=== PATIENT | female | born 1945 | race Caucasian/White ===

== ENCOUNTER 2016-10-07 14:29 | Emergency (ER) | payer MEDICARE ==
[2016-10-07 14:52] VITALS: BP 114/63
--- NOTE | 2016-10-07 16:47 | UC ---
Hand/Wrist HPI - HPI Summary HPI Summary: 71 female presents today with complaints of thinking she has glass in her right middle finger that has been ongoing for 2 months. Patient states she was gardening, picked up a flower pot and had small pieces of glasses cut her finger ~2months ago, she states it was bleeding and she removed some of the glass herself at that time. Patient states since this episode her finger however has still been painful when using it and on palpation of the finger pad area. She believes it is because there is still a small piece of glass inside. Also admits to some swelling and redness of the area (right middle finger pad). Patient denies any other complaints or injuries. Denies fever/chills and loss of ROM. Does have history of warts. - History Of Current Complaint Chief Complaint: Noah Stated Complaint: GLASS IN FINGER Time Seen by Provider: 10/07/16 16:31 Hx Obtained From: Patient Mechanism Of Injury: cut finger on glass 2 months ago Onset/Duration: Sudden Onset, Lasting Weeks - 2 months Severity Initially: Mild Severity Currently: Mild Pain Intensity: 3 Pain Scale Used: 0-10 Numeric Character Of Pain: Sharp - on palpation or pressure Aggravating Factor(s): Other - pressure/palpation Alleviating: Nothing Associated Signs And Symptoms: Positive: Swelling, Redness Related History: Dominant Hand Right - Allergies/Home Medications Allergies/Adverse Reactions: Allergies Allergy/AdvReac Type Severity Reaction Status Date / Time topical spray Allergy Hives Uncoded 10/07/16 14:52 PMH/Surg Hx/FS Hx/Imm Hx - Additional Past Medical History Additional PMH: Denies diabetes, htn and asthma. has history of arthritis - Surgical History Surgical History: Yes Surgery Procedure, Year, and Place: [facility] - Family History Known Family History: Positive: None - Social History Alcohol Use: None Substance Use Type: None Smoking Status (MU): Never Smoked Tobacco - Immunization History Most Recent Influenza Vaccination: 2013 Most Recent Tetanus Shot: Unknown Most Recent Pneumonia Vaccination: 3 years ago Review of Systems Constitutional: Negative Skin: Other - redness, swelling, pain Respiratory: Negative Cardiovascular: Negative Motor: Negative Neurovascular: Negative Musculoskeletal: Negative Neurological: Negative All Other Systems Reviewed And Are Negative: Yes Physical Exam Triage Information Reviewed: Yes Appearance: Well-Appearing, No Pain Distress, Well-Nourished Vital Signs: Initial Vital Signs Temp 98.3 F 10/07/16 14:50 Pulse 79 10/07/16 14:50 Resp 16 10/07/16 14:50 BP 114/63 10/07/16 14:50 Pulse Ox 97 10/07/16 14:50 Vital Signs Reviewed: Yes Eye Exam: Normal Eyes: Positive: Conjunctiva Clear ENT: Positive: Hearing grossly normal Neck exam: Normal Respiratory: Positive: Chest non-tender, Lungs clear, Normal breath sounds, No respiratory distress, No accessory muscle use Cardiovascular: Positive: RRR, No Murmur, Pulses Normal - 2+ radial b/l, Brisk Capillary Refill - <2 sec Musculoskeletal: Positive: Strength Intact, ROM Intact, Edema @ - mild edema of right tip of middle finger Neurological Exam: Normal Neurological: Positive: Alert, Muscle Tone Normal Psychological: Positive: Age Appropriate Behavior Skin: Positive: Other - edema and mild erythema of right middle finger pad/tip of anterior finger, possible FB however can not visualize any foreign body, palpation causes pain. small firm area in center of finger pad, with white center/wart like. no discharge does not appear to be infected at this time. Procedures - Procedure Summary Procedure Summary: see Dr Cast procedure note as she removed foreign body without complication. tolerated procedure well. minimal to no bleeding, bandaid applied. Diagnostics - Radiology right middle finger Xray Interpretation: Positive (See Comments) - 3 mm length radiopaque foreign body visualized within the superficial soft tissues at the palmar aspect of the tip of the finger at the level of the tuft of the distal phalanx. The foreign body is located radial relative to midline. Surrounding soft tissue swelling. Negative for fracture or malalignment. 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 Radiology Interpretation Completed By: Radiologist Hand/Wrist Course/Dx - Course Course Of Treatment: x-ray obtained and showed radiolucent foreign body. was removed by Dr Segun rodriguezout complication, tolerated procedure well. banaid applied with triple antibiotic ointment. tetanus updated. Warm soaks, keep clean and dry and watch for signs of infection. Apply triple antibiotic. Aware of worsening signs and symptoms to watch out for. Follow up PCP. - Differential Dx/Diagnosis Differential Diagnosis/HQI/PQRI: Cellulitis, Foreign Body, Infection, Other - wart Provider Diagnoses: right middle finger pain, redness, possible FB versus wart - Physician Notifications Discussed Patient Care With: Dr Cast Discharge - Discharge Plan Condition: Stable Disposition: HOME Patient Education Materials: Soft Tissue Foreign Body (ED) Referrals: Melvin Rhoades MD [Primary Care Provider] - Leidy Karimi MD [Medical Doctor] - Additional Instructions: Continue warm soaks. Keep clean and dry. If you develop worsening signs and symptoms such as infection, increased pain, numbness, fever/chills please seek medical attention promptly. Advil for pain. Ice to help with swelling and soothe pain. Follow up with PCP. Ortho if complications arise.
--- NOTE | 2016-10-07 17:09 | RAD ---
Indication: Sliver of glass at the palmar aspect of RIGHT finger at level of the middle phalanx for 2 months. Swelling and redness. Pain with pressure. Assess for foreign body. Comparison: No relevant prior exams available on the [facility] for comparison. Technique: AP, lateral, and oblique views RIGHT third finger Report: 3 mm length radiopaque foreign body visualized within the superficial soft tissues at the palmar aspect of the tip of the finger at the level of the tuft of the distal phalanx. The foreign body is located radial relative to midline. Surrounding soft tissue swelling. Negative for fracture or malalignment. 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 Valerio images saved on the [facility]. IMPRESSION: Retained foreign body within the soft tissues of the tuft of the RIGHT middle finger as described.
[2016-10-07] MEDS ORDERED: Lidocaine 1%* 5 ML VIAL INJ ONE (17:33)
[2016-10-07] MEDS ORDERED: Lidocaine 1% MPF* 2 ML VIAL ONE (17:37)
[2016-10-07] MEDS ORDERED: Tetan/Diph/Pertus SYR(Tdap)* 0.5 ML SYR(BOOSTRIX) use SYR IM ONE (17:59)
--- NOTE | 2016-10-07 18:01 | ED ---
Course/Dx - Course Course Of Treatment: x-ray obtained and negative for FB. US not available. told to follow up with PCP and to have US for further evaluation and rule out FB. Warm soaks, watc hfor signs of infection. Apply triple antibiotic. Once you rule out FB may be a wart. Discussed alternatives. Aware of worsening signs and symptoms to watch out for. - Diagnoses Provider Diagnoses: Foreign body in soft tissue Procedure - Procedure and Findings -: Pt with palpable fb in pad or right middle finger Visible on imaging d/w pt treatment options including foreign body removal in UC, ortho hand f/u, warm soaks and possible natural expulsion. Pt requested procedure at Time out taken with 2 RN present area prepped in sterile condition with betadine wipe x 3 and allowed to dry Under sterile condition, area of fb anesthesized with 1cc 1% lidocaine without epinephrine Using 11 blade [id number] "T" shaped incision made over site of fb Using tweezers v shape glass identified and pulled straight from wound Pt tolerated well covered wound with abx ointment and bandage encouraged warm soaks with epsom salts motrin/apap prn covered with abx ointment bandage reviewed with pt s/s infection Pt comfortable and in agreement with plan CSM intact post procedure
== END 2016-10-07 18:16 | disposition home or self-care (01) ==
LOC: UCEAST 14:29
DX: M79.644 Pain in right finger(s) (principal); L98.9 Disorder of the skin and subcutaneous tissue, unspecified
CPT/HCPCS: 73140; 90471; 90715; 99211; G0463

== ENCOUNTER 2017-02-09 08:39 | Day surgery (SDC) | payer MEDICARE ==
[2017-02-09] MEDS ORDERED: Lidocaine 1% MPF wEPI 200,000* 30 ML SDV ONE (09:58)
[2017-02-09] MEDS ORDERED: Sodium Bicarbonate 8.4% SYR* 10 ML SYRINGE ONE (09:58)
[2017-02-09] MEDS ORDERED: Bupivacaine 0.25% SDV* 30 ML ONE ×2 (10:04→11:54)
[2017-02-09 12:06] VITALS: BP 146/71
--- NOTE | 2017-02-10 07:03 | OP ---
DATE OF OPERATION: 02/09/17 - [facility] DATE OF : 49 SURGEON: Ever Earl MD CONTROL CABINET ASSEMBLER: AMADO Saldivar ANESTHESIOLOGIST: None. ANESTHESIA: Local only with 1% lidocaine with epinephrine and bicarbonate for the ring finger and 0.25% Marcaine for the index finger. PRE-OP DIAGNOSES: 1. Right ring trigger finger. 2. Right index finger, large mucous cyst with quite large dorsal osteophytes. POST-OP DIAGNOSES: 1. Right ring trigger finger. 2. Right index finger, large mucous cyst with quite large dorsal osteophytes. OPERATIVE PROCEDURE: 1. Right ring trigger finger A1 enrique release. 2. Right index finger mucous cyst excision with dorsal osteophyte excision. INDICATIONS: Darleen has a couple of issues. We talked about her treatment options and risks and benefits, she wanted to proceed with surgery. ESTIMATED BLOOD LOSS: 5 mL. COMPLICATIONS: None. FINDINGS: After releasing the right hand trigger finger, had her flex and extend the finger multiple times. She had no more triggering in the ring finger but she was having a little bit of catching in the small finger. I had asked her if she wanted to proceed with a trigger finger release for the small finger. She told me she wanted to hold off at the current time. DESCRIPTION OF PROCEDURE: Darleen was seen in the preoperative holding area. The correct side, site and the procedure were identified. I then anesthetized the right ring finger A1 enrique area with 1% lidocaine with epinephrine and bicarbonate and I performed a digital block for the right index finger with 0.25 % plain Marcaine. We then came back to the operating room, the arm was prepped and draped in the usual fashion. A time-out was performed. I began by making a 1 cm longitudinal incision of the right ring finger A1 enrique. Full-thickness flaps were raised off the tendon sheath. Digital nerves were protected with Ragnell retractors. I used the 15 blade to open up the A1 enrique longitudinally just on the radial aspect of midline. The release was completed proximally and distally with the tenotomy scissors. I then went ahead and irrigated out the wound. I had her flex and extend the fingers multiple times. There was no more triggering in the ring finger, but she was getting some catching and triggering in the small finger. I showed her this and I asked her if she wants me to proceed with the release. She told me she wanted to hold off. Everything was looking good with regards to the right ring finger. So, we irrigated out the wound. Skin was closed with 3-0 Monocryl suture. I then exsanguinated the right index finger with a Samm drain and left this on proximally as a tourniquet throughout the case. I went ahead and made an A- shaped incision over the dorsum of the index finger DIP joint. Full thickness flaps were raised off the terminal extensor tendon. I began ulnarly and developed an interval between the terminal extensor tendon and the ulnar collateral ligament. There was a very large loose mobile osteophyte there. This was excised with the [place] blade and rongeur. The entirety of that interval was excised. I then came to the radial side and again developed the interval between the radial collateral ligament and the terminal extensor tendon. Again, some very large osteophytes were excised. The redundant capsular and cystic material was excised. The tendon was mobilized off the dorsum of the middle phalanx. Some osteophytes there were excised with the rongeur. There were some large osteophytes remaining where the terminal extensor tendon attached to the distal phalanx. I excised as much of them as possible, but then I showed her that any additional excision of those osteophytes would result in detachment of the terminal extensor tendon and a mallet finger, told her we got to leave those alone and so we did. Once I had excised as much of the osteophytes as possible and got everything nicely cleaned up, I went ahead and irrigated out the wound. The skin there was closed with 4-0 nylon suture. I did infiltrate the trigger finger release area with some 0.25% plain Marcaine. The wounds were dressed with Xeroform, 4x4s, 1 inch cling and Coban. Tourniquet had been released after the index finger and it pinked up immediately. She was then taken to recovery room in stable condition. [id number]/[facility] #: [id number] ANGÉLICA
== END 2017-02-09 12:26 | disposition home or self-care (01) ==
LOC: OR 08:39
PROVIDERS: ATTEND Orthopaedic Surgery Hand Surgery
DX: M65.341 Trigger finger, right ring finger (principal); M25.741 Osteophyte, right hand; M25.841 Other specified joint disorders, right hand; M19.041 Primary osteoarthritis, right hand; Z88.2 Allergy status to sulfonamides; Z88.8 Allergy status to other drugs, medicaments and biological substances
CPT/HCPCS: 88304; J2001

== ENCOUNTER 2017-02-09 19:50 | Emergency (ER) | payer MEDICARE ==
[2017-02-09 19:57] VITALS: BP 157/76
--- NOTE | 2017-02-09 22:04 | ED ---
Jayden Crook Gabriel, scribed for Jason Arthur on 02/09/17 at 2042 . Complex/Multi-Sys Presentation - HPI Summary HPI Summary: This patient is a 71 year old F presenting to [facility] with a chief complaint of right handed numbness s/p surgery. Pt states she had trigger finger surgery today and says her fingers are cold and numb fingers, but she can move them. - History Of Current Complaint Chief Complaint: EDExtremityUpper Time Seen by Provider: 02/09/17 20:26 Hx Obtained From: Patient Onset/Duration: Still Present Timing: Constant Severity Currently: Moderate Severity Initially: Mild - Allergies/Home Medications Allergies/Adverse Reactions: Allergies Allergy/AdvReac Type Severity Reaction Status Date / Time Latex Allergy Blisters Verified 02/09/17 09:21 Sulfa Antibiotics Allergy Unknown Verified 02/09/17 09:22 Reaction Details topical spray Allergy Hives Uncoded 02/09/17 09:04 PMH/Surg Hx/FS Hx/Imm Hx Previously Healthy: No Endocrine/Hematology History: Denies: Hx Diabetes Cardiovascular History: Denies: Hx Congestive Heart Failure, Hx Hypertension Respiratory History: Denies: Hx Chronic Obstructive Pulmonary Disease (COPD) History: Denies: Hx Renal Disease Musculoskeletal History: Reports: Hx Arthritis Denies: Hx Osteoporosis Sensory History: Reports: Hx Contacts or Glasses, Hx Hearing Aid Opthamlomology History: Reports: Hx Contacts or Glasses Neurological History: Reports: Hx Migraine Psychiatric History: Reports: Hx Anxiety - Surgical History Surgery Procedure, Year, and Place: [facility] Infectious Disease History: No Infectious Disease History: Denies: Traveled Outside the [place] in Last 30 Days - Family History Known Family History: Negative: Cardiac Disease, Diabetes - Social History Alcohol Use: Rare Substance Use Type: Reports: None Hx Tobacco Use: No Smoking Status (MU): Never Smoked Tobacco Have You Smoked in the Last Year: No Review of Systems Negative: Fever Positive: Other - fingers in right hand are cold Positive: Numbness - in fingers of right hand All Other Systems Reviewed And Are Negative: Yes Physical Exam - Summary Physical Exam Summary: Appearance: Well appearing, no pain distress Skin: warm, dry, reflects adequate perfusion Head/face: normal Eyes: EOMI, CRISTINA ENT: normal Neck: supple, non-tender Respiratory: CTA, breath sounds present Cardiovascular: RRR, pulses symmetrical Abdomen: non-tender, soft Bowel: present Musculoskeletal: strength/ROM intact, Dressing over right index finger, palm, and dorsal aspect of right hand. Her capillary refill is normal and there appears to be no neural vacular deficits. Neuro: normal, sensory motor intact, A&Ox3 Triage Information Reviewed: Yes Vital Signs On Initial Exam: Initial Vitals Temp Pulse Resp BP Pulse Ox 99.7 F 74 15 157/76 100 02/09/17 19:53 02/09/17 19:53 02/09/17 19:53 02/09/17 19:53 02/09/17 19:53 Vital Signs Reviewed: Yes Diagnostics - Vital Signs Vital Signs Temp Pulse Resp BP Pulse Ox 02/09/17 19:53 99.7 F 74 15 157/76 100 - Laboratory Lab Statement: Any lab studies that have been ordered have been reviewed, and results considered in the medical decision making process. Complex Multi-Symp Course/Dx Assessment/Plan: This patient is a 71 year old F presenting to [facility] with a chief complaint of right handed numbness s/p surgery. Pt states she had trigger finger surgery today and says her fingers are cold and numb fingers, but she can move them. Patient fingers are warm and good capillary refill , no nv deficit of the fingers and hand. to follow up with ortho am. - Diagnoses Differential Diagnoses/HQI/PQRI: Other - hx trigger finger surgery/post op complication Provider Diagnoses: Post surgical complication, Hx of hand surgery Discharge - Discharge Plan Condition: Stable Disposition: HOME Referrals: Melvin Rhoades MD [Primary Care Provider] - 3 Days Additional Instructions: RETURN TO THE EMERGENCY DEPARTMENT FOR CHANGING OR WORSENING SYMPTOMS The documentation as recorded by the Jayden orozco Gabriel accurately reflects the service I personally performed and the decisions made by , Jason Arthur.
== END 2017-02-09 20:59 | disposition home or self-care (01) ==
LOC: ED 19:50
DX: T81.89XA Other complications of procedures, not elsewhere classified, initial encounter (principal); Y83.8 Other surgical procedures as the cause of abnormal reaction of the patient, or of later complication, without mention of misadventure at the time of the procedure; Y92.9 Unspecified place or not applicable; R20.0 Anesthesia of skin; F41.9 Anxiety disorder, unspecified; Z88.2 Allergy status to sulfonamides
CPT/HCPCS: 99281

== ENCOUNTER 2018-12-31 09:59 | Inpatient (IN) | payer MEDICARE ==
--- OUTSIDE RECORDS SUMMARY | 2018-12-31 10:17 | XMS REPORT | Continuity of Care Document ---
:1945 External Reference #:[id number] Author Name Yuki Camarena MD (transmitted by agent of provider Shannon Davies) Address [address], [place] [address] Care Team Providers Name Role Phone Melvin Rhoades MD - Family Medicine Care Team Information Automation Tester Eddie Branham MD - Admissions Assistant Care Team Information Automation Tester Problems Active Problems Provider Date Chest pain Redd Doll M.D. Onset: 09/13/2013 Dyspnea Redd Doll M.D. 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 Onset: 02/08/2014 Systemic sclerosis Bhavin Harvey M.D. Onset: 02/08/2014 Myalgia & Myositis Unspecified Bhavin Harvey M.D. Onset: 02/08/2014 Immunologic Carlos Luke M.D. 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 Social History Type Date Description Comments Sex Unknown ETOH Use Denies alcohol use Tobacco Use Start: Unknown Patient has never smoked Recreational Drug Use Denies Drug Use Smoking Status Reviewed: 11/30/18 Patient has never smoked Exercise Type/Frequency Does not exercise Allergies, Adverse Reactions, Alerts Active Allergies Reaction Severity Comments Date Benzoin Resin per PCP office 07/201612/16/2016 Latex skin blistering 12/16/2016 Sulfa per PCP 07/201612/16/2016 Medications Active Medications SIG Qnty Indications Ordering Provider Date Multivitamin Adult 1 by mouth every Unknown Tablets day Alprazolam Unknown 0.25mg Tablets Medications Administered in Office Medication SIG Qnty Indications Ordering Provider Date Celestone 3 mg and 3mg Ever Earl MD 12/09/2016 Injection Celestone 3 mg and 3mg Heather Gill, 12/02/2010 Injection M.D. Celestone 3 mg and 3mg Heather Gill, 11/20/2009 Injection M.DJocelyne Immunizations Description No Information Available Vital Signs Date Vital Result Comment 11/30/2018 10:20am Heart Rate 76 /min Respiratory Rate 16 /min Body Temperature 98.4 F 08/03/2018 10:31am Heart Rate 72 /min BP Systolic 130 mmHg BP Diastolic 72 mmHg Respiratory Rate 16 /min Body Temperature 98.9 F Results Description No Information Available Procedures Date Code Description Status 08/03/2018 11136 Anoscopy Completed 06/30/2018 56427 Hemorrhoidectomy, Internal, By Rubber Band Ligation(S) Completed 06/02/2018 35552008 Colonoscopy Completed Medical Devices Description No Information Available Encounters Type Date Location Provider Dx Diagnosis Office Visit 06/30/2018 Surgical Adan Amado, [id number] Second degree 9:[facility] hemorrhoids Assessments Date Code Description Provider 08/03/2018 K64.1 Second degree hemorrhoids Adan Amado M.D. 07/06/2018 K64.1 Second degree hemorrhoids Adan Amado M.D. 06/30/2018 K64.1 Second degree hemorrhoids Adan Amado M.D. Plan of Treatment No Information Available Functional Status Description No Information Available Mental Status Description No Information Available Referrals Description No Information Available
--- NOTE | 2018-12-31 10:40 | ED ---
Abdominal Pain/Female - HPI Summary HPI Summary: This patient is a 73 year old female presenting to [facility] with a chief complaint of lower abdominal pain 4 days ago. She states the pain radiates to her lower back. She states she was very dizzy in the shower this morning. She states she briefly experienced chills while she was on the phone this morning. She also reports headache, constipation, and nausea. She rates her pain 7/10 in severity. She states she may have a prolapsed rectum and she is currently experiencing rectal pain when she is sitting down. Pt denies any fever, erythema of eyes, sore throat, CP, SOB, cough, vomiting, dysuria, hematuria, myalgia, edema, or rash. - History of Current Complaint Chief Complaint: EDAbdPain Stated Complaint: ABD PAIN/FLANK PAIN AND DIZZINESS PER PT Hx Obtained From: Patient Onset/Duration: Lasting Hours Severity Initially: Moderate Severity Currently: Moderate Pain Intensity: 7 Pain Scale Used: 0-10 Numeric Location: Discrete At: RLQ, Discrete At: LLQ Radiates: Yes Radiates to: Back Allergies/Adverse Reactions: Allergies Allergy/AdvReac Type Severity Reaction Status Date / Time latex Allergy Blisters Verified 12/31/18 14:50 Sulfa (Sulfonamide Allergy Unknown Verified 12/31/18 14:50 Antibiotics) Reaction Details topical spray Allergy Hives Uncoded 02/09/17 09:04 Home Medications: Home Medications ALPRAZolam TAB* [Xanax TAB*] 0.25 mg PO BEDTIME PRN 12/31/18 [History Confirmed 12/31/18] Glucosam/Chondr/Collagn/Hyalur [Glucosamine & Chondroitin Cap] 1 cap PO DAILY [History Confirmed 12/31/18] Multivitamins/Minerals TAB* [Theragran/minerals TAB*] 1 tab PO DAILY 12/31/18 [ History Confirmed 12/31/18] PMH/Surg Hx/FS Hx/Imm Hx Endocrine/Hematology History: Denies: Hx Diabetes Cardiovascular History: Denies: Hx Congestive Heart Failure, Hx Hypertension Respiratory History: Denies: Hx Chronic Obstructive Pulmonary Disease (COPD) History: Denies: Hx Renal Disease Musculoskeletal History: Reports: Hx Arthritis Denies: Hx Osteoporosis Sensory History: Reports: Hx Contacts or Glasses, Hx Hearing Aid Opthamlomology History: Reports: Hx Contacts or Glasses Neurological History: Reports: Hx Migraine Psychiatric History: Reports: Hx Anxiety - Cancer History Hx Chemotherapy: No Hx Radiation Therapy: No - Surgical History Surgery Procedure, Year, and Place: [facility] Infectious Disease History: Yes Infectious Disease History: Denies: Traveled Outside the [place] in Last 30 Days - Family History Known Family History: Negative: Cardiac Disease, Diabetes - Social History Alcohol Use: Rare Substance Use Type: Reports: None Hx Tobacco Use: No Smoking Status (MU): Never Smoked Tobacco Have You Smoked in the Last Year: No Review of Systems Negative: Fever, Chills Negative: Erythema Negative: Sore Throat Negative: Chest Pain Negative: Shortness Of Breath, Cough Positive: Abdominal Pain, Nausea, Other - Rectal pain, constipation. Negative: Vomiting Negative: dysuria, hematuria Negative: Myalgia, Edema Negative: Bruising Neurological: Other - Dizziness Positive: Headache All Other Systems Reviewed And Are Negative: No Physical Exam - Summary Physical Exam Summary: Constitutional: Well-developed, Well-nourished, Alert. (-) Distressed Skin: Warm, Dry HENT: Normocephalic; Atraumatic Eyes: Conjunctiva normal Neck: Musculoskeletal ROM normal neck. (-) JVD, (-) Stridor, (-) Tracheal deviation Cardio: Rhythm regular, rate normal, Heart sounds normal; Intact distal pulses; The pedal pulses are 2+ and symmetric. Radial pulses are 2+ and symmetric. (-) Murmur Pulmonary/Chest wall: Effort normal. (-) Respiratory distress, (-) Wheezes, (-) Rales Abd: Soft, mild bilateral lower abdominal tenderness, suprapubic tendernss, (-) Distension, (-) Guarding, (-) Rebound Musculoskeletal: (-) Edema. Bilateral CVA tenderness. Lymph: (-) Cervical adenopathy Neuro: Alert, Oriented x3 Psych: Mood and affect Normal Rectal: Compliance Aide Shwetha present. No perirectal abscess. No hemorrhoids or prolapse. Triage Information Reviewed: Yes Vital Signs On Initial Exam: Initial Vitals Temp Pulse Resp BP Pulse Ox 99.3 F 96 16 117/76 0 12/31/18 10:02 12/31/18 10:02 12/31/18 10:02 12/31/18 10:02 12/31/18 10:02 Vital Signs Reviewed: Yes Procedures - Sedation Patient Received Moderate/Deep Sedation with Procedure: No Diagnostics - Vital Signs Vital Signs Temp Pulse Resp BP Pulse Ox 12/31/18 10:02 99.3 F 96 16 117/76 0 - Laboratory Result Diagrams: 01/02/19 05:42 01/02/19 05:42 Lab Statement: Any lab studies that have been ordered have been reviewed, and results considered in the medical decision making process. - CT Abd/Pel CT Interpretation Completed By: Radiologist Summary of CT Findings: In the sigmoid colon just proximal to the rectum there is wall thickening and narrowing of the lumen likely representing diverticulitis although other etiologies are not excluded. There is fecal stasis proximal to this narrowing. No evidence of peridiverticular abscess is noted. Pericolonic infiltration of fat is noted. ED Provider has reviewed this report. Re-Evaluation - Re-Evaluation First Eval Re-Evaluation Time: 13:40 Comment: Patient is comfortable. Informed of results and plan of care. Abdominal Pain Fem Course/Dx - Course Course Of Treatment: This patient is a 73 year old female presenting to [facility] with a chief complaint of lower abdominal pain radiating to her back. CT Abd/ Pel revealed In the sigmoid colon just proximal to the rectum there is wall thickening and narrowing of the lumen likely representing diverticulitis although other etiologies are not excluded. There is fecal stasis proximal to this narrowing. No evidence of peridiverticular abscess is noted. Pericolonic infiltration of fat is noted. Labs revealed WBC 15.8, Absolute Neuts 13.4, Absolute Monos 1.2, and CRP 106.999. Dr. Botello, Hospitalist, accepted the patient for admission to the hospital. A plan for admission was discussed with the patient and she was agreeable with this plan. - Diagnoses Provider Diagnoses: Diverticulitis Discharge ED - Sign-Out/Discharge Documenting (check all that apply): Patient Departure - Admission - Discharge Plan Condition: Stable Disposition: ADMITTED TO [facility] - Billing Disposition and Condition Condition: STABLE Disposition: Admitted to [facility] - Attestation Statements Document Initiated by Scribe: Yes Documenting Scribe: Ever Jacobson Provider For Whom Scribe is Documenting (Include Credential): Colby Marvin MD Scribe Attestation: Ever Crook, scribed for Colby Marvin MD on 01/03/19 at 0802. Scribe Documentation Reviewed: Yes Provider Attestation: The documentation as recorded by the scribe, Ever Jacobson accurately reflects the service I personally performed and the decisions made by me, Colby Marvin MD Status of Scribe Document: Viewed
[2018-12-31] MEDS ORDERED: Morphine 4 MG/ML VIAL (1 ml) 4 MG/ML VIAL IV ONE (11:09)
[2018-12-31] MEDS ORDERED: Ondansetron INJ* 2 MG/ML VIAL IV ONE (11:09)
[2018-12-31 11:26] LABS: ABS Eosinophils 0.1 10^3/ul (0-0.6); ABS Monocytes 1.2 10^3/ul (0-0.8); ABS Neutrophils 13.4 10^3/ul (1.5-7.7); Eosinophil % 0.8 %; Hematocrit 40 % (35-47); Hemoglobin 13.3 g/dL (12.0-16.0); Lymphocyte % 6.6 %; Mean Corpuscular HGB Conc 33 g/dL (31-36); Mean Corpuscular Hemoglobin 30 pg (27-31); Mean Corpuscular Volume 91 fL (80-97); Mean Platelet Volume 8.4 fL (7.4-10.4); Platelet Count 250 10^3/uL (150-450); Red Blood Count 4.38 10^6 /uL (3.70-4.87); Red Cell Distribution Width 14 % (10-15); White Blood Count 15.8 10^3/uL (3.5-10.8)
[2018-12-31 11:36] LABS: Albumin 4.2 g/dL (3.2-5.2); Calcium 9.5 mg/dL (8.6-10.3); Total Bilirubin 1.2 mg/dL (0.2-1.0)
[2018-12-31 11:43] LABS: Albumin/Globulin Ratio 1.2 (1-3); BUN/Creatinine Ratio 17.2 (8-20); C Reactive Protein 106.99 mg/L (<8.01); EGFR African American 71.9 (>60); EGFR Non-African American 59.4 (>60); Globulin 3.4 g/dL (2-4); Total Protein 7.6 g/dL (6.4-8.9)
[2018-12-31] MEDS ORDERED: cefTRIAXone(*) 1 GM in NS 0.9% 50 ML* 50 ML IVPB ONE (11:43)
[2018-12-31] MEDS ORDERED: Iohexol 300* (CONTRAST) 10 ML SDV IV ONE (11:50)
[2018-12-31] MEDS ORDERED: Iodixanol* (CONTRAST) 320 MG/ML 100 ML SDV IV ONE (12:12)
[2018-12-31] MEDS: NS 0.9% 1000 ML** 2,000 ML IV ONE ×2 (12:24→12:45)
[2018-12-31 13:04] LABS: Urine Appearance Clear; Urine Bilirubin Negative (Negative); Urine Blood Negative (Negative); Urine Color Yellow; Urine Glucose Negative (Negative); Urine Ketones 1+ (Negative); Urine Nitrite Negative (Negative); Urine Protein Negative (Negative); Urine Specific Gravity 1.045 (1.010-1.030); Urine Urobilinogen Negative (Negative)
[2018-12-31] MEDS ORDERED: metroNIDAZOLE IV 500 MG/100ML* 500 MG/100 ML BAG IVPB ONE (13:27)
[2018-12-31] MEDS ORDERED: Ciprofloxacin 400MG IVPREMIX(* 400 MG/200 ML BAG IVPB ONE (13:27)
[2018-12-31] MEDS ORDERED: Magnesium Hydroxide LIQ* 30 ML UDC PO ONE (13:40)
[2018-12-31] MEDS ORDERED: Docusate CAP* 100 MG PO ONE (13:40)
[2018-12-31] MEDS ORDERED: Ondansetron INJ* 2 MG/ML VIAL IV PRN (14:55)
[2018-12-31] MEDS ORDERED: ALPRAZolam TAB* 0.25 MG PO PRN (14:57)
[2018-12-31] MEDS: Enoxaparin(*) 40 MG/0.4 ML SYR SUBCUT SCH (17:52)
[2018-12-31] MEDS: NS 0.9% 1000 ML** 1,000 ML IV SCH (17:53)
--- NOTE | 2018-12-31 17:56 | HP ---
CC: Dr. Rhoades * HISTORY AND PHYSICAL: DATE OF ADMISSION: 12/31/18 PROVIDER: Sabi Segura NP PRIMARY CARE PROVIDER: Dr. Rhoades. ATTENDING PHYSICIAN WHILE IN THE HOSPITAL: Dr. Isha August * (dictated by Sabi Segura NP). CHIEF COMPLAINT: Abdominal pain. HISTORY OF PRESENT ILLNESS: Ms. Melendez is a 73-year-old female with a past medical history significant for autoimmune disorder and anxiety who presented to the emergency room with complaints of abdominal pain. The patient reports that she started having lower abdominal pain on Thursday, and over the week, it has progressively gotten worse, now radiating into her lower back. The patient does report that she started having fever and chills yesterday. She reports this morning she was in the shower and she became very dizzy and felt like she was going to pass out, but that dizziness subsided. She does report that she has had dizziness for several years, and at times, it does become worse. Due to the patient's continued abdominal pain, she presented to the emergency room for further evaluation. The patient does report that her last bowel movement was over a week ago. The patient also reports that she had a colonoscopy 2 to 3 months ago, and at that time, her colonoscopy was normal. While in the emergency room, the patient had routine lab work drawn. She had a CT of the abdomen and pelvis. WBCs were 15.8. CT of the abdomen and pelvis showed diverticulitis. Due to these findings, Hospital Medicine was asked to see and evaluate her for admission. PAST MEDICAL HISTORY: Significant for: 1. Anxiety. 2. Autoimmune disorder. PAST SURGICAL HISTORY: None. HOME MEDICATIONS: Include: 1. Multivitamin 1 tablet p.o. daily. 2. Glucosamine 1 tablet p.o. daily. 3. Alprazolam 0.25 mg at bedtime as needed. ALLERGIES: LATEX, SULFA, and TOPICAL SPRAYS. FAMILY HISTORY: Mother with hypertension. No reported history of diabetes. Father with colon cancer. SOCIAL HISTORY: Denies any tobacco, alcohol, or illicit drug use. She is . Surrogate decision maker in the event she is unable to make her own decisions is her son, Kirill. She is a full code. REVIEW OF SYSTEMS: The patient does report fever and chills since last night. Denies any chest pain or edema. Denies any unintended weight loss. Denies any cough, hemoptysis, shortness of breath. She does report some nausea. Denies any diarrhea. She does report lower abdominal pain that radiates to her back. She does report constipation with no bowel movement x1 week. Denies any gross hematuria, dysuria. She does report urgency which is chronic. Denies any weakness or sensory loss, visual complaints, dysphagia, arthralgias, myalgias, rashes, lesions, open sores. She denies any psychosis. She does report increased anxiety and stress at home. PHYSICAL EXAMINATION GENERAL: At this time, Ms. Melendez is a 73-year-old female. She is alert and oriented, resting on the stretcher in the emergency room. She is in no acute distress. VITAL SIGNS: Temperature was 99.5, heart rate 96, respirations 16, O2 saturation 97%, blood pressure was 129/72. HEENT: Head is atraumatic, normocephalic. Eyes: EOMs are intact. Sclerae anicteric and not pale. Oral mucosa appeared to be moist. NECK: Supple. LUNGS: Clear to auscultation bilaterally. No wheezes, rales, or rhonchi. CARDIAC: S1, S2. Regular rate and rhythm. No murmurs, rubs, or gallops. ABDOMEN: Soft. She does have mild tenderness noted to the lower abdomen with palpation. Bowel sounds are active x4. NEUROLOGIC: She is awake, alert, oriented x3. Speech is clear. Thought process is intact. There are no gross focal deficits. SKIN: Intact. DIAGNOSTIC STUDIES/LAB DATA: WBCs are 15.8, RBCs 4.38, hemoglobin 13.3, hematocrit 40, platelet count 250. Sodium 138, potassium 4.0, chloride 104, carbon dioxide was 25, anion gap was 9, BUN was 16, creatinine 0.93, glucose 106 , lactic acid 0.8, calcium 9.5. Total bilirubin 1.20, ASTs were 18, ALTs were 13, alkaline phosphatase 94. C-reactive protein 106.99. Lipase was 23. Urine was within normal limits with exception specific gravity was 1.045 and ketones were 1+. She had a CT of the abdomen and pelvis, radiologist's impression: The sigmoid colon just proximal to the rectum, there is wall thickening and narrowing of the ileum likely representing diverticulitis, although other etiologies are not excluded. There is fecal stasis proximal to the narrowing. No evidence of peridiverticular abscess is noted. Pericolonic infiltration of fat is noted. There is a large amount of stool throughout the colon. She had an electrocardiogram which showed sinus rhythm at a rate of 94. No ST or T- wave changes. ASSESSMENT AND PLAN: Ms. Melendez is a 73-year-old female with a past medical history significant for autoimmune disorder, unknown type and anxiety who presented to the emergency room with complaints of lower abdominal pain since Thursday. She was found to have diverticulitis. She will be admitted under observation for: 1. Abdominal pain. She has acute diverticulitis. I will place her on ceftriaxone 2 g IV daily and Flagyl 500 mg IV q.8 hours. I will repeat a CBC and BMP in the a.m. She has had blood culture and is pending. She did receive IV fluids in the emergency room for a total of 2 L. I will continue IV fluids at 100 cc per hour. She can have Zofran as needed for nausea. I will place her on a clear liquid diet. 2. Constipation. The patient does report no bowel movement x7 days. I suspect this is related to her diverticulitis and colonic thickening. We will treat her with antibiotics which will help the colonic thickening and help resolve her constipation issue. 3. FEN: She can have a clear liquid diet. 4. Code status: She is a full code. 5. DVT prophylaxis: I will place her on Lovenox subcu. TIME SPENT: Time spent on this admission was 60 minutes, greater than half that time was spent at the bedside reviewing events leading thus far to her hospitalization, performing physical exam, and reviewing my plan of care. I have discussed this with my attending, Dr. Isha August; she is in agreement with my plan. SABI SEGURA, ELENA [id number]/[facility] #: [id number] ANGÉLICA
[2018-12-31] MEDS ORDERED: Docusate CAP* 100 MG PO SCH (21:00)
[2019-01-01] MEDS: metroNIDAZOLE IV 500 MG/100ML* 500 MG/100 ML BAG IVPB SCH ×4 (00:15→22:40)
[2019-01-01] MEDS: NS 0.9% 1000 ML** 1,000 ML IV SCH (04:12)
[2019-01-01 06:44] LABS: ABS Basophils 0.1 10^3/ul (0-0.2); ABS Eosinophils 0.3 10^3/ul (0-0.6); ABS Lymphocytes 2.1 10^3/ul (1.0-4.8); ABS Neutrophils 8.6 10^3/ul (1.5-7.7); Eosinophil % 2.1 %; Hematocrit 32 % (35-47); Lymphocyte % 17.7 %; Mean Corpuscular HGB Conc 35 g/dL (31-36); Mean Corpuscular Hemoglobin 32 pg (27-31); Mean Corpuscular Volume 92 fL (80-97); Mean Platelet Volume 8.8 fL (7.4-10.4); Platelet Count 201 10^3/uL (150-450); Red Blood Count 3.46 10^6 /uL (3.70-4.87); Red Cell Distribution Width 14 % (10-15)
[2019-01-01 07:03] LABS: BUN/Creatinine Ratio 14.1 (8-20); Calcium 8.2 mg/dL (8.6-10.3); EGFR African American 88.1 (>60); EGFR Non-African American 72.8 (>60); Potassium 3.8 mmol/L (3.5-5.0)
[2019-01-01] MEDS: Acetaminophen TAB* 325 MG PO PRN ×2 (07:22→16:06)
--- NOTE | 2019-01-01 10:47 | PN ---
Subjective Date of Service: 01/01/19 Interval History: Pt feels better. Has not had a BM for over a week. denies n/v. Abd pain "much better today" c/o b/l hand edema Objective Active Medications: Acetaminophen (Tylenol Tab*) 650 mg PO Q4H PRN PRN Reason: MILD PAIN or TEMP > 100.4 Last Admin: 01/01/19 07:22 Dose: 650 mg Alprazolam (Xanax Tab*) 0.25 mg PO BEDTIME PRN PRN Reason: ANXIETY Enoxaparin Sodium (Lovenox(*)) 40 mg SUBCUT Q24H [facility] Last Admin: 12/31/18 17:52 Dose: 40 mg Metronidazole/Sodium Chloride (Flagyl 500 Mg Ivpb*) 500 mg in 100 mls @ 100 mls /hr IVPB Q8H [facility] Last Admin: 01/01/19 07:14 Dose: 100 mls/hr Ceftriaxone Sodium 2 gm/ (Sodium Chloride) 100 mls @ 200 mls/hr IVPB ED ONCE ONE Stop: 01/01/19 14:29 Ondansetron HCl (Zofran Inj*) 4 mg IV Q6H PRN PRN Reason: NAUSEA/VOMITING Vital Signs - 8 hr 01/01/19 01/01/19 01/01/19 03:31 07:15 07:26 Temperature 98.3 F 98.5 F Pulse Rate 90 84 Respiratory 19 16 18 Rate Blood Pressure 111/52 121/62 (mmHg) O2 Sat by Pulse 95 97 Oximetry Oxygen Devices in Use Now: None Appearance: 73 yo F in nAD, aAOx3 Eyes: No Scleral Icterus, PERRLA Ears/Nose/Mouth/Throat: NL Teeth, Lips, Gums, Mucous Membranes Moist Neck: NL Appearance and Movements; NL JVP, Trachea Midline Respiratory: Symmetrical Chest Expansion and Respiratory Effort, Clear to Auscultation Cardiovascular: NL Sounds; No Murmurs; No JVD, RRR Abdominal: - - mild mid abd tenderness to palpation, no rebound, no guarding, BS + Extremities: No Clubbing, Cyanosis, - - diffuse nontpitting hand and feet edema b/l Skin: No Rash or Ulcers, No Nodules or Sclerosis Neurological: Alert and Oriented x 3, NL Muscle Strength and Tone Result Diagrams: 01/01/19 06:01/01/19 06:01 Assess/Plan/Problems-Billing Assessment: 73 yo F presents with diverticulitis nearly obstructing sigmoid colon - Patient Problems (1) Acute diverticulitis of intestine Comment: abd disomfort improving, but still no BM (for almost 7 days) CT shows near obstruction of sigmoid by diverticulitis Cont Ceftriaxone/Flagyl will ask GI to see Advance diet to full liquid Stop IVF due to edema (2) DVT prophylaxis Comment: Lovenox Status and Disposition: OBV will be changed to inpatient
[2019-01-01] MEDS: Enoxaparin(*) 40 MG/0.4 ML SYR SUBCUT SCH (13:54)
[2019-01-01] MEDS ORDERED: cefTRIAXone(*) 2 GM in NS 0.9% 100 ML* 100 ML IVPB ONE (14:00)
[2019-01-02] MEDS: metroNIDAZOLE IV 500 MG/100ML* 500 MG/100 ML BAG IVPB SCH (06:26)
[2019-01-02 06:28] LABS: ABS Basophils 0.1 10^3/ul (0-0.2); ABS Eosinophils 0.3 10^3/ul (0-0.6); ABS Monocytes 0.7 10^3/ul (0-0.8); ABS Neutrophils 7.1 10^3/ul (1.5-7.7); Eosinophil % 2.5 %; Hematocrit 32 % (35-47); Hemoglobin 10.8 g/dL (12.0-16.0); Lymphocyte % 19.6 %; Mean Corpuscular HGB Conc 34 g/dL (31-36); Mean Corpuscular Hemoglobin 31 pg (27-31); Mean Corpuscular Volume 92 fL (80-97); Mean Platelet Volume 8.9 fL (7.4-10.4); Platelet Count 220 10^3/uL (150-450); Red Blood Count 3.47 10^6 /uL (3.70-4.87); Red Cell Distribution Width 14 % (10-15); White Blood Count 10.2 10^3/uL (3.5-10.8)
[2019-01-02 06:35] LABS: BUN/Creatinine Ratio 11.3 (8-20); Calcium 8.5 mg/dL (8.6-10.3); EGFR African American 98.2 (>60); EGFR Non-African American 81.2 (>60); Potassium 3.6 mmol/L (3.5-5.0)
[2019-01-02 14:39] VITALS: BP 118/64
--- NOTE | 2019-01-02 19:35 | DS ---
CC: Dr. Rhoades; Dr. Ortega, Gastroenterology Department, [place] * DISCHARGE SUMMARY: DATE OF ADMISSION: 12/31/18 DATE OF DISCHARGE: To home, 01/02/19 PRIMARY CARE PROVIDER: Dr. Rhoades. DISPOSITION AT DISCHARGE: Discharged to home. CONDITION ON DISCHARGE: Stable. DISCHARGE DIAGNOSIS: Sepsis due to acute sigmoid diverticulitis with partial bowel obstruction and resulting fecal stasis. MEDICATIONS AT DISCHARGE: Include Augmentin 875 mg p.o. b.i.d. for a total of 10 days. The remaining medications are unchanged and include: 1. Multivitamin 1 tablet daily. 2. Glucosamine 1 capsule daily. 3. Xanax 0.25 mg at bedtime p.r.n. LABORATORY DATA AND STUDIES PERFORMED DURING THE HOSPITAL STAY: Included: On 01/02/19, sodium of 141, potassium 3.6, chloride 110, carbon dioxide 25, BUN 8, creatinine 0.71. CBC: White blood cell count of 10.2, hemoglobin of 10.8, hematocrit of 32, and platelets of 220. CT of abdomen and pelvis obtained on 12/31/18, impression: "In the sigmoid colon just proximal to the rectum, there is a wall thickening and narrowing of the lumen likely representing diverticulitis, although other certified nutritionist are not excluded. There is fecal stasis proximal to this narrowing. No evidence of peridiverticular abscess is noted. Pericolonic infiltration of fat is noted." Blood cultures were negative. HOSPITALIZATION COURSE: Darleen Melendez is a 73-year-old female who presented to the hospital complaining of abdominal pain and no bowel movements for approximately 7 days. The patient was noted to have sepsis at admission and was diagnosed with acute diverticulitis with partial obstruction of the bowel resulting in fecal stasis. The patient was admitted to the hospital and treated with ceftriaxone and metronidazole intravenously. With limitation of the patient's diet and antibiotic treatment, the patient's abdominal pain resolved and she started having loose bowel movements. By the time of discharge , she had several loose bowel movements and she complains of no abdominal pain, but she still feels that her abdomen is "sore" sometimes. She is going to be discharged home and recommendation to follow up with Dr. Rhoades in approximately 4 to [address] Ortega, her talkback host in several weeks for followup. PHYSICAL EXAMINATION: At the time of discharge, blood pressure of 112/59, heart rate of 86 and regular, respiratory rate 18, oxygen saturation 95% on room air, temperature 98.3. General: The patient is a very pleasant 73-year- old female who is in no acute distress. Alert, awake, and oriented x3. HEENT: Head: Atraumatic, normocephalic. Eyes: Pupils are equal and reactive to light and accommodation. Oropharynx is clear. Mucosa moist. Neck: Supple. No JVD. No bruits bilaterally. Cardiovascular: Regular rate and rhythm. No murmur. Respiratory: Clear to auscultation bilaterally. Abdomen: Soft, minimally tender in the mid of the abdomen with no rebound, no guarding and bowel sounds are present in all 4 quadrants. Extremities: There is no edema. Pulses are +2 bilaterally. No clubbing or cyanosis. On neuro evaluation, speech is clear. Cranial nerves II through XII grossly intact. Motor strength is 5/5 bilaterally. Please note that this is a short summary of the patient's hospital stay. Please refer to further medical records for details. TIME SPENT: Approximately 35 minutes were spent on the patient's discharge. [id number]/[facility] #: [id number] MTDD
== END 2019-01-02 15:00 | disposition home or self-care (01) | DRG 872 ==
LOC: ED 09:59 → MED 14:55 → OBSVTOIN 01-01 10:48
PROVIDERS: ADMIT Internal Medicine; ATTEND Internal Medicine
DX: A41.9 Sepsis, unspecified organism (principal); K57.32 Diverticulitis of large intestine without perforation or abscess without bleeding; K56.699 Other intestinal obstruction unspecified as to partial versus complete obstruction; K56.41 Fecal impaction; F41.9 Anxiety disorder, unspecified; D89.89 Other specified disorders involving the immune mechanism, not elsewhere classified; Z79.899 Other long term (current) drug therapy; Z88.2 Allergy status to sulfonamides; Z88.8 Allergy status to other drugs, medicaments and biological substances; Z91.040 Latex allergy status; Z82.49 Family history of ischemic heart disease and other diseases of the circulatory system; Z80.0 Family history of malignant neoplasm of digestive organs
CPT/HCPCS: 36415; 74177; 80048; 80053; 81003; 83605; 83690; 85025; 86140; 87040; 93005; 96365; 96375; 99284; A9270-GY; G0378; J0696; J0744; J1650; J2270; J2405; Q9967